=== PATIENT | female | born 1940 | race Caucasian/White ===

== ENCOUNTER → 2017-05-20 | Outpatient (CLI) | payer OTHER ==
[~2017-05-20] MED LIST: AEC81 PO; AMLO10TA2 PO; ATEN50TA PO; ATOR10TA69 PO; BERBERINE PO; FENO134C PO; METF500T6 PO; NITR0.4T50 SL; OLME1TAB44 PO; OMEP40CA37 PO
== END | disposition home or self-care (01) ==
LOC: OIH 14:22
PROVIDERS: ATTEND Internal Medicine Cardiovascular Disease
DX: Z13.6 Encounter for screening for cardiovascular disorders (principal)
CPT/HCPCS: 75571

== ENCOUNTER 2017-09-20 09:34 | Day surgery (SDC) | payer MEDICARE ==
[2017-09-16 10:47] VITALS: BP 160/66
[2017-09-16 10:58] LABS: BASOPHILS % (AUTO) 0.9 % (0.0-5.0); EOSINOPHILS % (AUTO) 2.1 % (0.0-8.0); HEMATOCRIT 38.2 % (36-48); LYMPHOCYTES % (AUTO) 22.2 % (21.0-51.0); MEAN CORPUSCULAR HEMOGLOBIN 28.2 pg (27.0-33.0); MEAN CORPUSCULAR HGB CONC 33.6 g/dL (32.0-36.0); MEAN CORPUSCULAR VOLUME 83.8 fL (79-99); MONOCYTES % (AUTO) 9.4 % (3.0-13.0); NEUTROPHILS % (AUTO) 65.4 % (40.0-77.0); PLATELET COUNT (AUTO) 370 K/uL (130-400); RED BLOOD CELL COUNT(AUTO) 4.55 MIL/uL (4.00-5.50); RED CELL DISTRIBUTION WIDTH 13.8 % (11.0-15.5); WHITE BLOOD COUNT (AUTO) 8.4 K/uL (4.8-10.8)
[2017-09-16 11:05] LABS: APPEARANCE,URINE Clear (CLEAR); BILIRUBIN,URINE Negative (NEGATIVE); COLOR,URINE Yellow (YELLOW); GLUCOSE, URINE (UA) Negative (NEGATIVE); KETONES,URINE Negative (NEGATIVE); LEUKOCYTE ESTERASE ,URINE Negative (NEGATIVE); NITRATE,URINE Negative (NEGATIVE); OCCULT BLOOD,URINE Negative (NEGATIVE); PROTEIN,URINE Negative (NEGATIVE); UROBILINOGEN,URINE 0.2 mg/dL (0.2-1.0)
[2017-09-16 11:06] LABS: POTASSIUM 4.1 mmol/L (3.5-5.1)
[2017-09-16 11:33] LABS: INR 0.96 (0.85-1.15); PARTIAL THROMBOPLASTIN TIME 25.3 SEC (26.3-35.5); PROTHROMBIN TIME 10.1 SEC (9.6-11.6)
[2017-09-20] VITALS (10 sets, daily range): BP systolic 138–164; BP diastolic 50–68
[~2017-09-20] VITALS: Ht 160 cm; Wt 73.9 kg
[~2017-09-20 09:34] MED LIST changes: +ACETAMINOPHEN 325 MG TAB PO PRN; -AEC81 PO; +SODIUM CHLORIDE 0.9% 500ML 500 ML IV SCH
[2017-09-20] MEDS ORDERED: SODIUM CHLORIDE 0.9% 1000ML 1,000 ML IV ONE (11:00)
[2017-09-20] MEDS ORDERED: NITROGLYCERIN 5 MG/ML 10 ML VIAL IV ONE (11:41)
[2017-09-20] MEDS ORDERED: SODIUM BICARB 50MEQ 50ML VIAL ONE (11:41)
[2017-09-20] MEDS ORDERED: HEPARIN SODIUM 1000UNIT/ML 10ML VIAL ONE (11:41)
[2017-09-20] MEDS ORDERED: ISOVUE-370 50ML VIAL IV ONE (11:41)
[2017-09-20] MEDS ORDERED: IOPAMIDOL-370 100 ML VIAL IV ONE (11:41)
[2017-09-20] MEDS ORDERED: LIDOCAINE HCL 2% 20ML ONE (11:41)
[2017-09-20] MEDS ORDERED: SODIUM CHLORIDE 0.9% 1000ML 1,000 ML IV SCH (12:23)
[2017-09-20] MEDS ORDERED: AEC81 PO (12:25)
[2017-09-20] MEDS ORDERED: ACETAMINOPHEN 325 MG TAB PO PRN (12:30)
== END 2017-09-20 16:50 | disposition home or self-care (01) ==
LOC: DAH 09:34
PROVIDERS: ATTEND Internal Medicine Cardiovascular Disease
DX: I25.118 Atherosclerotic heart disease of native coronary artery with other forms of angina pectoris (principal); E78.5 Hyperlipidemia, unspecified; I34.0 Nonrheumatic mitral (valve) insufficiency; Z68.29 Body mass index [BMI] 29.0-29.9, adult; K21.9 Gastro-esophageal reflux disease without esophagitis; Z82.49 Family history of ischemic heart disease and other diseases of the circulatory system; I11.0 Hypertensive heart disease with heart failure; I50.9 Heart failure, unspecified; E11.9 Type 2 diabetes mellitus without complications; Z79.84 Long term (current) use of oral hypoglycemic drugs; Z79.4 Long term (current) use of insulin; Z79.899 Other long term (current) drug therapy; Z88.8 Allergy status to other drugs, medicaments and biological substances
CPT/HCPCS: 36415; 71045; 80048; 81003; 82948 ×2; 85025; 85610; 85730; 93005; 93458; C1760; C1894; J1644; J3490 ×3; J7030; Q9967 ×2

== ENCOUNTER → 2018-07-12 | Outpatient (CLI) | payer MEDICARE ==
[~2018-07-12] MED LIST changes: -ACETAMINOPHEN 325 MG TAB PO PRN; +AEC81 PO; -AMLO10TA2 PO; +AMLO10TA7 PO; +METF-444 PO; -METF500T6 PO; -SODIUM CHLORIDE 0.9% 500ML 500 ML IV SCH
== END | disposition home or self-care (01) ==
LOC: SHCH 10:06
PROVIDERS: ATTEND Internal Medicine Cardiovascular Disease
DX: I65.23 Occlusion and stenosis of bilateral carotid arteries (principal)
CPT/HCPCS: 93880

== ENCOUNTER → 2018-07-13 | Outpatient (CLI) | payer MEDICARE | END | disposition home or self-care (01) | LOC: SHCH 10:45 | PROVIDERS: ATTEND Internal Medicine Cardiovascular Disease | DX: I34.0 Nonrheumatic mitral (valve) insufficiency (principal); I51.7 Cardiomegaly; I25.10 Atherosclerotic heart disease of native coronary artery without angina pectoris | CPT/HCPCS: 93306 ==

== ENCOUNTER → 2018-09-26 | Outpatient (CLI) | payer MEDICARE ==
[~2018-09-26] VITALS: Ht 157.5 cm; Wt 74.8 kg
[~2018-09-26] MED LIST changes: +AMLO5TAB9 PO; +COQ10 PO; +INSU100V12 SQ
[2018-09-26 09:38] VITALS: BP 180/58
[2018-09-26 09:52] LABS: BASOPHILS % (AUTO) 1.1 % (0.0-5.0); EOSINOPHILS % (AUTO) 2.1 % (0.0-8.0); HEMATOCRIT 38.3 % (36-48); LYMPHOCYTES % (AUTO) 27.2 % (21.0-51.0); MEAN CORPUSCULAR HEMOGLOBIN 28.1 pg (27.0-33.0); MEAN CORPUSCULAR VOLUME 85.3 fL (79-99); MONOCYTES % (AUTO) 9.9 % (3.0-13.0); NEUTROPHILS % (AUTO) 59.7 % (40.0-77.0); PLATELET COUNT (AUTO) 337 K/uL (130-400); RED BLOOD CELL COUNT(AUTO) 4.49 MIL/uL (4.00-5.50); RED CELL DISTRIBUTION WIDTH 13.6 % (11.0-15.5); WHITE BLOOD COUNT (AUTO) 6.1 K/uL (4.8-10.8)
[2018-09-26 10:03] LABS: CREATININE 1.1 mg/dL (0.5-1.5); POTASSIUM 3.7 mmol/L (3.5-5.1)
[2018-09-26 10:08] LABS: INR 1.01 (0.85-1.15); PARTIAL THROMBOPLASTIN TIME 26.8 SEC (26.3-35.5); PROTHROMBIN TIME 10.6 SEC (9.6-11.6)
--- NOTE | 2018-09-26 10:15 | NUR ---
DRY COUGH X 3 WEEKS SPOKE TO ABY AT DR. TORRES'S OFFICE OF PATIENT HAVING COUGH X 3 WEEKS AND IS TREATING IT W/OTC ROQUE. ABY IS TO TALK TO DR. TORRES AND CALL ME BACK.
--- NOTE | 2018-09-26 10:28 | NUR ---
PATIENT'S COUGH ABY CALLED BACK AND DR. TORRES CANCELLED PROCEDURE FOR 09/28/18 AND WILL RESCHEDULE. PATIENT IS TO SEE HER PRIMARY CARE PHYSICIAN FOR TREATMENT OF HER COUGH.
--- NOTE | 2018-09-26 10:51 | NUR ---
RESCHEDULE ABLATION SPOKE TO PATIENT OF RESCHEDULING PROCEDURE AT A LATER DATE. ADVISED PATIENT DR. TORRES WANTS HER TO SEE HER PCP FOR TREATMENT OF HER COUGH. ADVISED PATIENT TO CALL DR. TORRES ON CONTINUATION OF HER MEDICATION. SAID SHE WOULD. VERBALIZED UNDERSTANDING.
== END ==
LOC: EDSTATUS 09:00 → DAH 10:00
PROVIDERS: ATTEND Internal Medicine Cardiovascular Disease
DX: I47.1 Supraventricular tachycardia (principal); Z53.9 Procedure and treatment not carried out, unspecified reason; I10 Essential (primary) hypertension; E78.5 Hyperlipidemia, unspecified; E11.9 Type 2 diabetes mellitus without complications; K21.9 Gastro-esophageal reflux disease without esophagitis; I42.2 Other hypertrophic cardiomyopathy; Z86.79 Personal history of other diseases of the circulatory system; Z98.890 Other specified postprocedural states; Z88.2 Allergy status to sulfonamides; Z88.5 Allergy status to narcotic agent; Z79.4 Long term (current) use of insulin; Z79.82 Long term (current) use of aspirin; Z79.899 Other long term (current) drug therapy
CPT/HCPCS: 36415; 80048; 85025; 85610; 85730

== ENCOUNTER → 2018-11-14 | Outpatient (CLI) | payer MEDICARE ==
[~2018-11-14] VITALS: Ht 157.5 cm; Wt 74.5 kg
[~2018-11-14] MED LIST changes: -AMLO10TA7 PO
[2018-11-14 09:05] LABS: BASOPHILS % (AUTO) 0.8 % (0.0-5.0); EOSINOPHILS % (AUTO) 2.2 % (0.0-8.0); HEMATOCRIT 39.9 % (36-48); LYMPHOCYTES % (AUTO) 19.6 % (21.0-51.0); MEAN CORPUSCULAR HEMOGLOBIN 27.5 pg (27.0-33.0); MEAN CORPUSCULAR HGB CONC 32.4 g/dL (32.0-36.0); MEAN CORPUSCULAR VOLUME 84.7 fL (79-99); MONOCYTES % (AUTO) 9.4 % (3.0-13.0); PLATELET COUNT (AUTO) 340 K/uL (130-400); RED BLOOD CELL COUNT(AUTO) 4.71 MIL/uL (4.00-5.50); WHITE BLOOD COUNT (AUTO) 8.5 K/uL (4.8-10.8)
[2018-11-14 09:12] VITALS: BP 176/82
[2018-11-14 09:12] LABS: CREATININE 1.1 mg/dL (0.5-1.5); POTASSIUM 4.3 mmol/L (3.5-5.1)
[2018-11-14 09:16] LABS: INR 1.02 (0.85-1.15); PARTIAL THROMBOPLASTIN TIME 26.8 SEC (26.3-35.5); PROTHROMBIN TIME 10.7 SEC (9.6-11.6)
--- NOTE | 2018-11-14 09:42 | NUR ---
medication informed gabrielle ruiz at dr oviedo's office of pt not stopping atenolo three days prior. as per dr. oviedo, pt will be cancelled and rescheduled for another date.
== END ==
LOC: DAH 10:00 → EDSTATUS 11-16 08:00
PROVIDERS: ATTEND Internal Medicine Cardiovascular Disease
DX: Z01.818 Encounter for other preprocedural examination (principal); I47.1 Supraventricular tachycardia; Z79.84 Long term (current) use of oral hypoglycemic drugs; Z79.899 Other long term (current) drug therapy; Z79.4 Long term (current) use of insulin; Z79.01 Long term (current) use of anticoagulants; Z87.891 Personal history of nicotine dependence; Z88.5 Allergy status to narcotic agent; Z88.1 Allergy status to other antibiotic agents; Z88.8 Allergy status to other drugs, medicaments and biological substances; Z82.49 Family history of ischemic heart disease and other diseases of the circulatory system
CPT/HCPCS: 36415; 80048; 85025; 85610; 85730

== ENCOUNTER 2018-12-08 08:35 | Observation (INO) | payer MEDICARE ==
[2018-12-06 13:33] VITALS: BP 174/84
[2018-12-06 13:50] LABS: BASOPHILS % (AUTO) 0.8 % (0.0-5.0); EOSINOPHILS % (AUTO) 1.5 % (0.0-8.0); HEMATOCRIT 39.8 % (36-48); LYMPHOCYTES % (AUTO) 21.8 % (21.0-51.0); MEAN CORPUSCULAR HGB CONC 32.5 g/dL (32.0-36.0); MEAN CORPUSCULAR VOLUME 86.2 fL (79-99); MONOCYTES % (AUTO) 8.1 % (3.0-13.0); NEUTROPHILS % (AUTO) 67.8 % (40.0-77.0); PLATELET COUNT (AUTO) 332 K/uL (130-400); RED BLOOD CELL COUNT(AUTO) 4.61 MIL/uL (4.00-5.50); RED CELL DISTRIBUTION WIDTH 14.6 % (11.0-15.5)
[2018-12-06 14:08] LABS: PARTIAL THROMBOPLASTIN TIME 27.8 SEC (26.3-35.5); PROTHROMBIN TIME 10.5 SEC (9.6-11.6)
[2018-12-08] VITALS (9 sets, daily range): BP systolic 134–154; BP diastolic 52–72
[~2018-12-08] VITALS: Ht 157.5 cm; Wt 72.8 kg
[~2018-12-08 08:35] MED LIST changes: -AEC81 PO; +CETI10TA57 PO; +FISH1CAP27 PO; -NITR0.4T50 SL; -OMEP40CA37 PO
[2018-12-08] MEDS: SODIUM CHLORIDE 0.9% 1000ML 1,000 ML IV SCH ×2 (09:39→16:30)
[2018-12-08] MEDS ORDERED: LIDOCAINE HCL 2% 20ML ONE ×2 (10:13→10:36)
[2018-12-08] MEDS ORDERED: MEPERIDINE-PF 25 MG/ML SYG ONE ×3 (11:16→12:05)
[2018-12-08] MEDS ORDERED: MIDAZOLAM HCL 1 MG/ML 2ML VIAL ONE ×2 (11:16→11:39)
[2018-12-08] MEDS ORDERED: ISOPROTERENOL HCL 0.2 MG/ML AMP/VIAL/BAG ONE (12:29)
--- NOTE | 2018-12-08 13:00 | NUR ---
TSF PT TSF TO RM [id number]
--- NOTE | 2018-12-08 14:00 | NUR ---
RECEIVED FROM PARAPROFESSIONAL AIDE AA&OX3. NO DISTRESS NOTED. UNLABORED RESPIRATIONS. BILATERAL FEMORALS WITH DRESSINGS DRY & INTACT. PALPABLE PEDAL PULSES. INSTRUCTED ON BEDREST X3 HRS WITH MOVEMENT RESTRICTIONS TO BLE'S TO PREVENT BLEEDING/HEMATOMA. VERBALIZED UNDERSTANDING. ASSISTED ONTO BEDPAN. VOIDED 200ML YELLOW/CLEAR URINE. SETTLED IN BED. SUPINE. BILATERAL FEMORALS WITH DRESSINGS DRY & INTACT NO HEMATOMA NOR BLEEDING. CALL LIGHT IN HAND. INSTRUCTED TO CALL FOR ASSISTANCE. NO FAMILY PRESENT. STATED FAMILY IS IN MAIN LOBBY. CALLED AUTO WASHER, BUT NOBODY RESPONDED TO FAMILY PAGE.
--- NOTE | 2018-12-08 19:35 | NUR ---
ASSESSMENT PT AAOX4. RESTING QUIETLY IN BED WATCHING TV. BILATERALLY GROIN DRSG C/D/I, SOFT, NO HEMATOMA NO BRUISING. (+) PPP. PT UP AND AMBULATING IN ROOM. PT ORIENTED TO CALL NICOLAS LUNDBERG WITHIN REACH. WHITE BOARD UP-DATED. ASSESSMENT COMPLETED, SEE FLOW SHEET
[2018-12-08] MEDS ORDERED: LEVEMIR 50 UNIT SQ SCH (21:00)
[2018-12-08] MEDS: ATENOLOL 50 MG TABLET PO SCH (21:00)
[2018-12-08] MEDS: METFORMIN HCL 500 MG TABLET PO SCH (21:00)
--- NOTE | 2018-12-08 21:19 | NUR ---
DR RADHA GARCIA CALLED RE: STATUS UP-DATED. NO NEW ORDERS RECEIVED.
[2018-12-09 00:17] VITALS: BP 148/67
[2018-12-09 03:12] VITALS: BP 142/56
[2018-12-09 07:15] VITALS: BP 165/67
[2018-12-09] MEDS ORDERED: AMLODIPINE BESYLATE 5 MG TAB PO SCH ×2 (09:00)
[2018-12-09] MEDS ORDERED: HYDROCHLOROTHIAZIDE PO SCH (09:00)
[2018-12-09] MEDS ORDERED: OLMESARTAN PO SCH (09:00)
[2018-12-09] MEDS ORDERED: FISH OIL 1000 MG/CAP PO SCH (09:00)
[2018-12-09] MEDS ORDERED: [UNRECOGNIZED DRUG - OTHER] PO SCH (09:00)
[2018-12-09] MEDS ORDERED: CETIRIZINE HCL 5 MG TABLET PO SCH (09:00)
[2018-12-09] MEDS ORDERED: ATORVASTATIN CALCIUM 10 MG TABLET PO SCH (09:00)
[2018-12-09] MEDS: METFORMIN HCL 500 MG TABLET PO SCH (09:02)
[2018-12-09] MEDS: ATENOLOL 50 MG TABLET PO SCH (09:02)
--- NOTE | 2018-12-09 10:20 | NUR ---
PT IN NO DISTRESS- GROIN DRESSINGS REMOVED AND THERE IS NO SIGNS OF HEMATOMA'S OR BLEEDING. UP AD VALERIE. PT TOOK HER OWN HOME MEDS- SHE AND I REVIEWED ALL MEDS BEFORE SHE TOOK THEM.
[2018-12-09 10:30] VITALS: BP 140/56
--- NOTE | 2018-12-09 10:39 | NUR ---
PT HAS BEEN CLEARED FOR DISCHARGE BY DR MYESHA TIJERINA AND I HAVE NOTIFIED DR MONTGOMERY FOR DISCHARGE DISPOSITION. SHE WILL BE COMING TO SEE PATIENT THIS AM.
--- NOTE | 2018-12-09 13:48 | NUR ---
PT DISCHARGED HOME- PRINTED AND VERBAL DISCHARGE INSTRUCTIONS GIVEN . VERBALIZES UNDERSTANDING . NO ACUTE DISTRESSNOTED
== END 2018-12-09 13:45 | disposition home or self-care (01) ==
LOC: DAH 08:35 → 2DH 08:36 → DAH 08:36
PROVIDERS: ADMIT Internal Medicine; ATTEND Internal Medicine
DX: I47.1 Supraventricular tachycardia (principal); E11.65 Type 2 diabetes mellitus with hyperglycemia; E78.5 Hyperlipidemia, unspecified; I10 Essential (primary) hypertension; I42.9 Cardiomyopathy, unspecified; K21.9 Gastro-esophageal reflux disease without esophagitis; K27.9 Peptic ulcer, site unspecified, unspecified as acute or chronic, without hemorrhage or perforation; Z85.09 Personal history of malignant neoplasm of other digestive organs; Z85.51 Personal history of malignant neoplasm of bladder; Z86.79 Personal history of other diseases of the circulatory system; Z90.49 Acquired absence of other specified parts of digestive tract; Z79.899 Other long term (current) drug therapy; Z88.5 Allergy status to narcotic agent
CPT/HCPCS: 36415; 80048; 82948 ×4; 85025; 85610; 85730; 93005; 93613; 93621; 93623; 93653; A4606; A4649; C1730 ×4; C1732; C1894 ×5; G0378 ×24; J1644; J2175 ×3; J2250 ×2; J3490 ×2; J7030; 99156; 99157

== ENCOUNTER 2019-08-06 08:30 | Day surgery (SDC) | payer MEDICARE ==
[2019-08-02 14:55] VITALS: BP 197/87
[2019-08-02 15:07] LABS: BASOPHILS % (AUTO) 0.6 % (0.0-5.0); EOSINOPHILS % (AUTO) 3.2 % (0.0-8.0); HEMATOCRIT 37.6 % (36-48); LYMPHOCYTES % (AUTO) 21.3 % (21.0-51.0); MEAN CORPUSCULAR HEMOGLOBIN 27.9 pg (27.0-33.0); MEAN CORPUSCULAR HGB CONC 32.2 g/dL (32.0-36.0); MEAN CORPUSCULAR VOLUME 86.6 fL (79-99); MONOCYTES % (AUTO) 8.7 % (3.0-13.0); NEUTROPHILS % (AUTO) 65.9 % (40.0-77.0); PLATELET COUNT (AUTO) 362 K/uL (130-400); RED BLOOD CELL COUNT(AUTO) 4.34 MIL/uL (4.00-5.50); WHITE BLOOD COUNT (AUTO) 9.8 K/uL (4.8-10.8)
[2019-08-02 15:22] LABS: CREATININE 1.1 mg/dL (0.5-1.5); POTASSIUM 3.7 mmol/L (3.5-5.1)
--- NOTE | 2019-08-02 15:49 | NUR ---
PER DR. WANDA CAMPA.
[2019-08-06] VITALS (17 sets, daily range): BP systolic 142–171; BP diastolic 56–74
[~2019-08-06] VITALS: Ht 157.5 cm; Wt 72.6 kg
[~2019-08-06 08:30] MED LIST changes: -AMLO5TAB9 PO; +CEFTRIAXONE SODIUM 1 GM IVP SCH; -FENO134C PO; +FURO20TA4 PO; -OLME1TAB44 PO; +OLME1TAB86 PO; +TUMERIC PO
[2019-08-06] MEDS ORDERED: SODIUM CHLORIDE 0.9% 1000ML 1,000 ML IV ONE (09:54)
[2019-08-06] MEDS ORDERED: IOHEXOL-350 50ML VIAL IV ONE (12:28)
[2019-08-06] MEDS ORDERED: PROPOFOL 10 MG/ML 20ML VIAL IV ONE (12:53)
[2019-08-06] MEDS ORDERED: LIDOCAINE PF 2% 5ML ABBOJECT ONE (12:53)
[2019-08-06] MEDS ORDERED: MIDAZOLAM HCL 1 MG/ML 2ML VIAL ONE (12:53)
[2019-08-06] MEDS ORDERED: FENTANYL CITRATE PF 50 MCG/1 ML 2ML VIAL ONE (12:54)
[2019-08-06] MEDS ORDERED: EPHEDRINE SULFATE 50 MG/ML AMPULE ONE (13:20)
[2019-08-06] MEDS ORDERED: DEXAMETHASONE SOD PHOSPHATE 10MG/ML 1ML VIAL ONE (13:20)
[2019-08-06] MEDS ORDERED: ONDANSETRON HCL 4 MG/2 ML VIAL ONE (13:20)
--- NOTE | 2019-08-06 14:50 | NUR ---
LOPEZ CATHETER BAG CHANGED OUT/SWITCHED TO LEG BAG. FAMILY INSTRUCTED ON HOW TO CHANGE BAG TO LOPEZ BAG FROM LEG BAG AND LOPEZ CARE INSTRUCTIONS PROVIDED TO PATIENT/FAMILY.
[2019-08-06] MEDS ORDERED: PHENAZOPYRIDINE HCL 200 MG TABLET ONE (15:01)
--- NOTE | 2019-08-06 15:10 | NUR ---
DISCHARGE INSTRUCTIONS PROVIDED TO PATIENT AND PATIENT'S FAMILY, FOLLOW UP APPOINTMENTS PROVIDED AND PRESCRIPTIONS PROVIDED WELL.
--- NOTE | 2019-08-06 15:30 | NUR ---
PATIENT DISCHARGED FROM FACILITY VIA WHEELCHAIR AND PATIENT ASSISTED INTO PRIVATE VEHICLE DRIVEN BY FAMILY.
== END 2019-08-06 15:30 | disposition home or self-care (01) ==
LOC: DAH 08:30
PROVIDERS: ATTEND Urology
DX: C67.9 Malignant neoplasm of bladder, unspecified (principal); R31.9 Hematuria, unspecified; E11.9 Type 2 diabetes mellitus without complications; I10 Essential (primary) hypertension; K21.9 Gastro-esophageal reflux disease without esophagitis; M19.90 Unspecified osteoarthritis, unspecified site; Z88.2 Allergy status to sulfonamides; Z88.8 Allergy status to other drugs, medicaments and biological substances; Z79.899 Other long term (current) drug therapy; Z79.84 Long term (current) use of oral hypoglycemic drugs; Z88.5 Allergy status to narcotic agent; Z98.890 Other specified postprocedural states; Z79.4 Long term (current) use of insulin; Z87.891 Personal history of nicotine dependence; Z82.49 Family history of ischemic heart disease and other diseases of the circulatory system
CPT/HCPCS: 36415; 52204; 74420; 80048; 82948 ×2; 85025; 88305; 88341; 88342; 93005; A4215; A4221; A4222; A4223; A4344; A4600; A4657; A4663; A5113; A6260; C1758; C1769; J0696; J1100; J2001; J2250; J2405; J2704; J3010; J3490; J7030; J7120; Q9967

== ENCOUNTER 2021-04-03 01:53 | Observation (INO) | payer MEDICARE ==
[~2021-04-03] VITALS: Ht 157.5 cm; Wt 71.8 kg
[~2021-04-03 01:53] MED LIST changes: +ASCO500T10 PO; +ATEN25TA PO; -ATEN50TA PO; -CEFTRIAXONE SODIUM 1 GM IVP SCH; +FERR325T22 PO; -FISH1CAP27 PO; +FOLI1 PO; +OLME-11 PO; -OLME1TAB86 PO; +PANT40TA55 PO
[2021-04-03 02:30] LABS: BASOPHILS % (AUTO) 0.7 % (0.0-5.0); EOSINOPHILS % (AUTO) 2.7 % (0.0-8.0); HEMATOCRIT 35.5 % (36-48); LYMPHOCYTES % (AUTO) 20.7 % (21.0-51.0); MEAN CORPUSCULAR HEMOGLOBIN 27.4 pg (27.0-33.0); MEAN CORPUSCULAR HGB CONC 32.4 g/dL (32.0-36.0); MEAN CORPUSCULAR VOLUME 84.5 fL (79-99); MONOCYTES % (AUTO) 10.3 % (3.0-13.0); NEUTROPHILS % (AUTO) 65.3 % (40.0-77.0); PLATELET COUNT (AUTO) 300 K/uL (130-400); RED CELL DISTRIBUTION WIDTH 13.3 % (11.0-15.5); WHITE BLOOD COUNT (AUTO) 9.6 K/uL (4.8-10.8)
[2021-04-03 02:39] LABS: CREATININE 1.2 mg/dL (0.5-1.5); POTASSIUM 3.4 mmol/L (3.5-5.1)
[2021-04-03 02:44] LABS: ALBUMIN 3.4 g/dL (3.5-5.0); BILIRUBIN,TOTAL 0.3 mg/dL (0.2-1.0); TOTAL PROTEIN, SERUM 7.1 g/dL (6.0-8.3)
[2021-04-03] MEDS ORDERED: IOHEXOL 350 MG/ML 100ML INFUS..BTL IV ONE (02:53)
[2021-04-03] MEDS ORDERED: 0.9%NACL 1000ML 500 ML IV ONE (03:00)
[2021-04-03] MEDS ORDERED: LACTATED RINGERS 1000ML 1,000 ML IV SCH (03:30)
[2021-04-03] MEDS ORDERED: HYDRALAZINE 20MG/ML VIAL IV PRN (03:30)
[2021-04-03 03:32] LABS: HEMOGLOBIN A1C 8.8 % (4.0-6.0)
[2021-04-03] MEDS ORDERED: 0.9% NACL 500ML IV.SOLN 500 ML IV ONE (03:34)
[2021-04-03] MEDS: ASPIRIN 81MG CHEW TAB ONE ×2 (03:35→03:37)
[2021-04-03] MEDS ORDERED: POTASSIUM CHLORIDE 10MEQ/100ML 100 ML IV PRN ×2 (04:30→12:30)
[2021-04-03] MEDS ORDERED: LIDOCAINE HCL-MPF 1% 2ML VIAL IV PRN ×2 (04:30→12:30)
[2021-04-03 04:33] LABS: APPEARANCE,URINE Clear (CLEAR); BILIRUBIN,URINE Negative (NEGATIVE); COLOR,URINE Dark Yellow (YELLOW); GLUCOSE, URINE (UA) Negative (NEGATIVE); KETONES,URINE Negative (NEGATIVE); LEUKOCYTE ESTERASE ,URINE Trace (NEGATIVE); NITRATE,URINE Negative (NEGATIVE); OCCULT BLOOD,URINE Negative (NEGATIVE); PH,URINE 6.5 (5.0-8.0); PROTEIN,URINE Negative (NEGATIVE)
[2021-04-03 04:40] LABS: BACTERIA,URINE None Seen /HPF (None Seen); RBC,URINE 0-1 /HPF (0-1); WBC,URINE 0-1 /HPF (0-1)
[2021-04-03 04:41] LABS: SQUAMOUS EPITHELIAL CELL,UR Rare /HPF (0-2)
[2021-04-03 05:15] VITALS: BP 176/73
[2021-04-03 05:48] LABS: CHOLESTEROL 109 mg/dL (<200); HDL CHOLESTEROL 43 mg/dL (35-85); LDL DIRECT 50 mg/dL (0-99); TRIGLYCERIDES 118 mg/dL (30-200)
[2021-04-03 07:44] VITALS: BP 171/62
[2021-04-03] MEDS ORDERED: ASPIRIN 81MG CHEW TAB PO SCH (09:00)
[2021-04-03] MEDS ORDERED: FAMOTIDINE 20MG VIAL IV SCH (09:00)
[2021-04-03] MEDS: ASPIRIN 81 MG EC TAB PO SCH (09:00)
[2021-04-03 10:46] VITALS: BP 160/69
[2021-04-03] MEDS: INSULIN HUMULIN R 100 UNIT/ML 3ML SQ SCH ×3 (12:00→21:12)
[2021-04-03] MEDS ORDERED: POTASSIUM CHLORIDE 10% ELIXIR 20 MEQ/15 ML UDCUP PO PRN (12:30)
[2021-04-03] MEDS ORDERED: KCL 20 MEQ ERTAB PO PRN (12:30)
[2021-04-03] MEDS ORDERED: ASPIRIN 81 MG EC TAB PO SCH (17:00)
[2021-04-03 17:01] VITALS: BP 154/73
[2021-04-03 19:26] VITALS: BP 157/67
[2021-04-03] MEDS ORDERED: GLUCAGON 1MG KIT 1 MG ML IM PRN (19:30)
[2021-04-03] MEDS ORDERED: DEXTROSE 50%-WATER 50 ML DISP.SYRIN IV PRN (19:30)
[2021-04-03] MEDS ORDERED: INSULIN GLARGINE 100 UNITS/ML 10 ML VIAL SQ SCH (21:00)
[2021-04-03] MEDS ORDERED: ATORVASTATIN 40 MG TABLET PO SCH (21:00)
[2021-04-03] MEDS: ATENOLOL 25 MG TABLET PO SCH (21:10)
[2021-04-03] MEDS: PANTOPRAZOLE 40 MG/VIAL IVP SCH (21:10)
[2021-04-03 23:37] VITALS: BP 158/66
[2021-04-04 03:24] VITALS: BP 154/79
[2021-04-04 03:59] LABS: BASOPHILS % (AUTO) 0.8 % (0.0-5.0); EOSINOPHILS % (AUTO) 3.5 % (0.0-8.0); LYMPHOCYTES % (AUTO) 23.3 % (21.0-51.0); MEAN CORPUSCULAR HEMOGLOBIN 27.3 pg (27.0-33.0); MEAN CORPUSCULAR HGB CONC 31.8 g/dL (32.0-36.0); MEAN CORPUSCULAR VOLUME 85.9 fL (79-99); MONOCYTES % (AUTO) 9.1 % (3.0-13.0); NEUTROPHILS % (AUTO) 63.1 % (40.0-77.0); PLATELET COUNT (AUTO) 279 K/uL (130-400); RED BLOOD CELL COUNT(AUTO) 3.96 MIL/uL (4.00-5.50); RED CELL DISTRIBUTION WIDTH 13.4 % (11.0-15.5); WHITE BLOOD COUNT (AUTO) 9.2 K/uL (4.8-10.8)
[2021-04-04 04:28] LABS: CREATININE 1.1 mg/dL (0.5-1.5); MAGNESIUM 1.4 mg/dL (1.80-2.40); POTASSIUM 3.6 mmol/L (3.5-5.1); THYROID STIMULATING HORMONE 3.25 uIU/mL (0.36-3.74)
[2021-04-04] MEDS: INSULIN HUMULIN R 100 UNIT/ML 3ML SQ SCH ×2 (05:52→12:00)
[2021-04-04] MEDS ORDERED: MAGNESIUM 2GM PREMIX 50ML 50 ML IV PRN (06:00)
[2021-04-04 08:09] VITALS: BP 152/59
[2021-04-04] MEDS ORDERED: FERROUS SULFATE 325 MG TABLET.DR PO SCH (09:00)
[2021-04-04] MEDS ORDERED: FUROSEMIDE 20 MG TABLET PO SCH (09:00)
[2021-04-04] MEDS ORDERED: FOLIC ACID 1 MG TABLET PO SCH (09:00)
[2021-04-04] MEDS: ASPIRIN 81 MG EC TAB PO SCH (10:36)
[2021-04-04] MEDS: PANTOPRAZOLE 40 MG/VIAL IVP SCH (10:37)
[2021-04-04] MEDS: ATENOLOL 25 MG TABLET PO SCH (10:37)
[2021-04-04 10:52] VITALS: BP 157/74
[2021-04-04] MEDS ORDERED: ASPI-1005 PO (10:59)
== END 2021-04-04 13:50 | disposition home or self-care (01) ==
LOC: EDH 01:53 → INTOOBSV 03:05 → EDHIP 03:05 → 4AH 03:55
PROVIDERS: ADMIT Internal Medicine; ATTEND Internal Medicine
DX: I63.9 Cerebral infarction, unspecified (principal); E87.6 Hypokalemia; I48.0 Paroxysmal atrial fibrillation; I10 Essential (primary) hypertension; E11.9 Type 2 diabetes mellitus without complications; K21.9 Gastro-esophageal reflux disease without esophagitis; M62.81 Muscle weakness (generalized); E78.5 Hyperlipidemia, unspecified; K57.90 Diverticulosis of intestine, part unspecified, without perforation or abscess without bleeding; I25.10 Atherosclerotic heart disease of native coronary artery without angina pectoris; E03.9 Hypothyroidism, unspecified; R29.703 NIHSS score 3; R47.81 Slurred speech; R29.818 Other symptoms and signs involving the nervous system; Z87.19 Personal history of other diseases of the digestive system; Z79.899 Other long term (current) drug therapy; Z98.890 Other specified postprocedural states; Z79.4 Long term (current) use of insulin; Z79.84 Long term (current) use of oral hypoglycemic drugs; Z79.82 Long term (current) use of aspirin; Z85.51 Personal history of malignant neoplasm of bladder; Z85.828 Personal history of other malignant neoplasm of skin; Z87.11 Personal history of peptic ulcer disease
CPT/HCPCS: 36415 ×2; 70450; 70496; 70498; 70551; 71045; 72148; 80048; 80053; 80061; 81001; 82607; 82948 ×7; 83036; 83735; 84145; 84439; 84443; 84484; 85025 ×2; 92522; 92610; 93005; 96365; 96366; 96375; 96376; 97116; 99285; C9113 ×2; G0378; G8978; G8979; G8980; G8981; G8982; G8983; J3475; J3490; J7040; J7120; Q9967

== ENCOUNTER 2021-07-31 06:38 | Day surgery (SDC) | payer MEDICARE ==
[2021-07-29 08:32] VITALS: BP_SYST 160; BP_SYST 172; BP_SYST 220; BP_DIAS 100; BP_DIAS 103; BP_DIAS 90
[2021-07-29 14:56] LABS: BASOPHILS % (AUTO) 0.7 % (0.0-5.0); EOSINOPHILS % (AUTO) 1.8 % (0.0-8.0); HEMATOCRIT 38.3 % (36-48); LYMPHOCYTES % (AUTO) 22.3 % (21.0-51.0); MEAN CORPUSCULAR HEMOGLOBIN 28.1 pg (27.0-33.0); MEAN CORPUSCULAR HGB CONC 31.9 g/dL (32.0-36.0); MEAN CORPUSCULAR VOLUME 88.2 fL (79-99); MONOCYTES % (AUTO) 7.7 % (3.0-13.0); NEUTROPHILS % (AUTO) 67.1 % (40.0-77.0); PLATELET COUNT (AUTO) 341 K/uL (130-400); RED BLOOD CELL COUNT(AUTO) 4.34 MIL/uL (4.00-5.50); RED CELL DISTRIBUTION WIDTH 12.6 % (11.0-15.5); WHITE BLOOD COUNT (AUTO) 11.6 K/uL (4.8-10.8)
[2021-07-31] VITALS (15 sets, daily range): BP systolic 129–187; BP diastolic 54–95
[~2021-07-31] VITALS: Ht 157.5 cm; Wt 71.2 kg
[~2021-07-31 06:38] MED LIST changes: +AEC81 PO; +ASCO500C18 PO; -ASCO500T10 PO; -ATEN25TA PO; +ATEN50TA PO; -BERBERINE PO; -CETI10TA57 PO; -FERR325T22 PO; -FOLI1 PO; -PANT40TA55 PO; -TUMERIC PO
[2021-07-31] MEDS ORDERED: 0.9%NACL 1000ML 1,000 ML IV ONE (07:35)
[2021-07-31] MEDS ORDERED: IOHEXOL-350 50ML VIAL IV ONE (07:53)
[2021-07-31] MEDS: CEFTRIAXONE 1G VIAL IVP ONE ×2 (07:58→09:43)
[2021-07-31] MEDS ORDERED: MITOMYCIN 40 MG SYR.W..INJ AD PRN (08:00)
[2021-07-31] MEDS ORDERED: FERR159T2 PO (08:28)
[2021-07-31] MEDS ORDERED: CETI10TA57 PO (08:28)
[2021-07-31] MEDS ORDERED: CALC-866 PO (08:28)
[2021-07-31] MEDS ORDERED: ESOM20CA31 PO (08:28)
[2021-07-31] MEDS ORDERED: TURM1TAB PO (08:28)
[2021-07-31] MEDS ORDERED: MULT-1203 PO (08:28)
[2021-07-31] MEDS ORDERED: FENTANYL CITRATE PF 50 MCG/1 ML 2ML VIAL ONE (09:36)
[2021-07-31] MEDS ORDERED: LIDOCAINE PF 100MG/5ML (2%) SYRINGE 5ML ONE (09:36)
[2021-07-31] MEDS ORDERED: PROPOFOL 10 MG/ML 20ML VIAL IV ONE (09:36)
[2021-07-31] MEDS ORDERED: GLYCOPYRROLATE 1 MG/5 ML SYRINGE ONE (09:54)
== END 2021-07-31 12:05 | disposition home or self-care (01) ==
LOC: DAH 06:38
PROVIDERS: ATTEND Urology
DX: R31.29 Other microscopic hematuria (principal); Z20.822 Contact with and (suspected) exposure to COVID-19; C67.9 Malignant neoplasm of bladder, unspecified; I10 Essential (primary) hypertension; I25.10 Atherosclerotic heart disease of native coronary artery without angina pectoris; E11.9 Type 2 diabetes mellitus without complications; K21.9 Gastro-esophageal reflux disease without esophagitis; M19.90 Unspecified osteoarthritis, unspecified site; I44.1 Atrioventricular block, second degree; I49.1 Atrial premature depolarization; I45.10 Unspecified right bundle-branch block; Z98.890 Other specified postprocedural states; Z79.84 Long term (current) use of oral hypoglycemic drugs; Z79.82 Long term (current) use of aspirin; Z79.899 Other long term (current) drug therapy; Z88.6 Allergy status to analgesic agent; Z88.8 Allergy status to other drugs, medicaments and biological substances
CPT/HCPCS: 36415; 51720; 52204; 74420; 80048; 82948 ×3; 85025; 87635; 88305; 88341; 88342; 93005 ×2; A4213; A4215; A4221; A4222; A4223; A4344; A4358; A4663; A6260; C1758; C1769; C9803; J0696; J2001; J2704; J3010; J3490; J7030; J7120; J9280; Q9967

== ENCOUNTER 2021-11-11 20:28 | Inpatient (IN) | payer MEDICARE ==
[~2021-11-11] VITALS: Ht 157.5 cm; Wt 71.0 kg
[~2021-11-11 20:28] MED LIST changes: -AEC81 PO; +CALC-866 PO; +CETI10TA57 PO; -COQ10 PO; +ESOM20CA31 PO; +FERR159T2 PO; +MULT-1203 PO; +PHARMACY COMMUNICATION MISC SCH
[2021-11-11 21:10] LABS: CREATININE 1.1 mg/dL (0.5-1.5); POTASSIUM 3.2 mmol/L (3.5-5.1)
[2021-11-11 21:15] LABS: ALBUMIN 3.3 g/dL (3.5-5.0); BILIRUBIN,TOTAL 0.4 mg/dL (0.2-1.0); TOTAL PROTEIN, SERUM 7.3 g/dL (6.0-8.3)
[2021-11-11 21:21] LABS: BASOPHILS % (AUTO) 0.3 % (0.0-5.0); HEMATOCRIT 37.8 % (36-48); LYMPHOCYTES % (AUTO) 10.9 % (21.0-51.0); MEAN CORPUSCULAR HEMOGLOBIN 27.8 pg (27.0-33.0); MEAN CORPUSCULAR HGB CONC 33.1 g/dL (32.0-36.0); MONOCYTES % (AUTO) 14.5 % (3.0-13.0); NEUTROPHILS % (AUTO) 73.9 % (40.0-77.0); PLATELET COUNT (AUTO) 253 K/uL (130-400); RED CELL DISTRIBUTION WIDTH 13.7 % (11.0-15.5); WHITE BLOOD COUNT (AUTO) 10.2 K/uL (4.8-10.8)
[2021-11-11] MEDS ORDERED: ACETAMINOPHEN 500 MG TABLET ONE (21:33)
[2021-11-11] MEDS ORDERED: CEFTRIAXONE 1G VIAL IVP ONE (22:00)
[2021-11-11] MEDS ORDERED: AZITHROMYCIN 250 MG TABLET PO ONE ×2 (22:00→23:22)
[2021-11-11] MEDS ORDERED: 0.9% NACL 500ML IV.SOLN 500 ML IV ONE (22:00)
[2021-11-11] MEDS ORDERED: ACETAMINOPHEN 500 MG TABLET PO ONE (22:00)
[2021-11-11] MEDS ORDERED: PHARMACY COMMUNICATION**REMDESIVIR MISC SCH (22:30)
[2021-11-11] MEDS ORDERED: DEXAMETHASONE 4 MG TAB PO SCH (22:30)
[2021-11-11] MEDS ORDERED: ACETAMINOPHEN 325 MG TAB PO PRN (22:30)
[2021-11-11] MEDS ORDERED: LIDOCAINE HCL-MPF 1% 2ML VIAL IV PRN (22:30)
[2021-11-11] MEDS ORDERED: ERGOCALCIFEROL (VITAMIN D2) 50,000 UNIT CAPSULE PO ONE (22:30)
[2021-11-11] MEDS ORDERED: DEXAMETHASONE SOD PHOSPHATE 4 MG/ML 1ML VIAL IVP SCH (22:30)
[2021-11-11] MEDS ORDERED: ONDANSETRON 4MG INJ IV PRN (22:30)
[2021-11-11] MEDS ORDERED: POTASSIUM CHLORIDE 20MEQ/100ML 100 ML IV PRN (22:30)
[2021-11-11] MEDS ORDERED: NITROGLYCERIN 0.4 MG SL TAB SL PRN (23:00)
[2021-11-11] MEDS ORDERED: ASPIRIN 81MG CHEW TAB PO ONE (23:00)
[2021-11-11 23:21] LABS: ABG BASE EXCESS 2.4 mmol/L (-2.0-3.0); ABG HCO3 24.4 mmol/L (21.0-28.0); ABG OXYGEN SATURATION 95.9 % (95.0-99.0); ABG PCO2 30 mmHg (32-45)
[2021-11-11] MEDS: CEFTRIAXONE 1G VIAL IVP SCH (23:29)
[2021-11-11] MEDS: POTASSIUM CHLORIDE 10% ELIXIR 20 MEQ/15 ML UDCUP PO PRN (23:30)
[2021-11-12] MEDS ORDERED: ERGOCALCIFEROL (VITAMIN D2) 50,000 UNIT CAPSULE ONE (00:07)
[2021-11-12] MEDS ORDERED: ASPIRIN 81MG CHEW TAB ONE (00:07)
[2021-11-12] MEDS: DOXYCYCLINE 100MG+NS 250ML IV SCH ×3 (00:11→22:38)
[2021-11-12] MEDS: ALBUTEROL INHALER 90MCG/INH IH SCH ×5 (00:16→22:48)
[2021-11-12 01:01] LABS: APPEARANCE,URINE CLEAR (CLEAR); BILIRUBIN,URINE NEGATIVE (NEGATIVE); COLOR,URINE YELLOW (YELLOW); GLUCOSE, URINE (UA) NEGATIVE (NEGATIVE); KETONES,URINE 15 mg/dL (NEGATIVE); LEUKOCYTE ESTERASE ,URINE NEGATIVE (NEGATIVE); NITRATE,URINE NEGATIVE (NEGATIVE); OCCULT BLOOD,URINE TRACE-INTACT (NEGATIVE); PROTEIN,URINE 100 mg/dL (NEGATIVE)
[2021-11-12 01:10] LABS: BACTERIA,URINE Rare /HPF (None Seen); WBC,URINE 0-1 /HPF (0-1)
[2021-11-12] MEDS: POTASSIUM CHLORIDE 10% ELIXIR 20 MEQ/15 ML UDCUP PO PRN (01:32)
[2021-11-12 01:40] VITALS: BP 167/75
[2021-11-12] MEDS ORDERED: ENALAPRILAT DIHYDRATE 1.25MG/ML 1ML VIAL IV SCH (02:00)
[2021-11-12] MEDS ORDERED: AMLODIPINE 5 MG TAB PO ONE (02:00)
[2021-11-12 04:00] VITALS: BP 149/59
[2021-11-12] MEDS: INSULIN HUMULIN R 100 UNIT/ML 3ML SQ SCH ×4 (06:16→20:49)
[2021-11-12 06:36] LABS: BASOPHILS % (AUTO) 0.2 % (0.0-5.0); HEMATOCRIT 41.6 % (36-48); LYMPHOCYTES % (AUTO) 7.7 % (21.0-51.0); MEAN CORPUSCULAR HEMOGLOBIN 27.8 pg (27.0-33.0); MEAN CORPUSCULAR HGB CONC 32.7 g/dL (32.0-36.0); MEAN CORPUSCULAR VOLUME 84.9 fL (79-99); MONOCYTES % (AUTO) 6.7 % (3.0-13.0); NEUTROPHILS % (AUTO) 84.9 % (40.0-77.0); PLATELET COUNT (AUTO) 242 K/uL (130-400); RED CELL DISTRIBUTION WIDTH 13.7 % (11.0-15.5)
[2021-11-12 06:48] LABS: ALBUMIN 2.9 g/dL (3.5-5.0); BILIRUBIN,TOTAL 0.3 mg/dL (0.2-1.0); CREATININE 1.1 mg/dL (0.5-1.5); POTASSIUM 4.3 mmol/L (3.5-5.1); TOTAL PROTEIN, SERUM 6.9 g/dL (6.0-8.3)
[2021-11-12 06:52] LABS: HEMOGLOBIN A1C 9.7 % (4.0-6.0)
[2021-11-12 08:00] VITALS: BP_SYST 145; BP_SYST 151; BP_DIAS 81; BP_DIAS 87
[2021-11-12] MEDS ORDERED: FAMOTIDINE 20MG VIAL IV SCH (09:00)
[2021-11-12] MEDS ORDERED: ASPIRIN 81MG CHEW TAB PO SCH (09:00)
[2021-11-12] MEDS ORDERED: ENOXAPARIN SODIUM 40 MG/0.4 ML SYRINGE SQ SCH (09:00)
[2021-11-12] MEDS: AMLODIPINE 5 MG TAB PO SCH (09:47)
[2021-11-12] MEDS: ZINC SULFATE 220 CAPSULE PO SCH (09:47)
[2021-11-12] MEDS: ASCORBIC ACID 500 MG TAB PO SCH (09:47)
[2021-11-12] MEDS: CEFTRIAXONE 1G VIAL IVP SCH ×2 (09:48→22:37)
[2021-11-12 10:01] LABS: CRP QUANTITATIVE 74.9 mg/L (0.00-9.0); MAGNESIUM 1.2 mg/dL (1.80-2.40)
[2021-11-12] MEDS: PANTOPRAZOLE 40 MG/VIAL IVP SCH (10:24)
[2021-11-12] MEDS: ATENOLOL 50 MG TABLET PO SCH ×2 (10:25→20:47)
[2021-11-12] MEDS: THIAMINE HCL 100 MG/ML 2ML VIAL IVP SCH (10:25)
[2021-11-12 12:00] VITALS: BP 145/72
[2021-11-12] MEDS ORDERED: MAGNESIUM 2GM PREMIX 50ML 50 ML IV SCH (13:00)
[2021-11-12 15:54] VITALS: BP 126/54
[2021-11-12 19:00] VITALS: BP 144/91
[2021-11-12] MEDS ORDERED: VANCOMYCIN PROTOCOL PER PHARMACY IV SCH (20:00)
[2021-11-12] MEDS: VANCOMYCIN 1G/250ML KIT 250 ML IV SCH (20:46)
[2021-11-12] MEDS: HEPARIN 5,000 UNIT VIAL SQ SCH (20:48)
[2021-11-12] MEDS: GUAIFENESIN-DM 200/20 MG 10 ML PO PRN (22:38)
[2021-11-13] VITALS (7 sets, daily range): BP systolic 134–181; BP diastolic 59–90
[2021-11-13] MEDS ORDERED: MAGNESIUM 2GM PREMIX 50ML 50 ML IV PRN
[2021-11-13] MEDS: ALBUTEROL INHALER 90MCG/INH IH SCH ×4 (05:24→23:00)
[2021-11-13 05:53] LABS: BASOPHILS % (AUTO) 0.1 % (0.0-5.0); HEMATOCRIT 39.6 % (36-48); MEAN CORPUSCULAR HEMOGLOBIN 27.6 pg (27.0-33.0); MEAN CORPUSCULAR HGB CONC 32.6 g/dL (32.0-36.0); MEAN CORPUSCULAR VOLUME 84.6 fL (79-99); MONOCYTES % (AUTO) 10.6 % (3.0-13.0); NEUTROPHILS % (AUTO) 73.8 % (40.0-77.0); PLATELET COUNT (AUTO) 272 K/uL (130-400); RED BLOOD CELL COUNT(AUTO) 4.68 MIL/uL (4.00-5.50); RED CELL DISTRIBUTION WIDTH 13.6 % (11.0-15.5); WHITE BLOOD COUNT (AUTO) 12.5 K/uL (4.8-10.8)
[2021-11-13] MEDS: INSULIN HUMULIN R 100 UNIT/ML 3ML SQ SCH ×4 (06:11→20:54)
[2021-11-13 06:27] LABS: ALBUMIN 2.8 g/dL (3.5-5.0); BILIRUBIN,TOTAL 0.3 mg/dL (0.2-1.0); CREATININE 0.9 mg/dL (0.5-1.5); POTASSIUM 3.8 mmol/L (3.5-5.1); TOTAL PROTEIN, SERUM 6.8 g/dL (6.0-8.3)
[2021-11-13] MEDS: KCL 20 MEQ ERTAB PO PRN ×2 (06:37→11:38)
[2021-11-13] MEDS: **HM** VIT D3 125MCG PO SCH (09:00)
[2021-11-13] MEDS: AMLODIPINE 5 MG TAB PO SCH (11:26)
[2021-11-13] MEDS: CETIRIZINE HCL 5 MG TABLET PO SCH (11:26)
[2021-11-13] MEDS: ZINC SULFATE 220 CAPSULE PO SCH (11:26)
[2021-11-13] MEDS: ACETAMINOPHEN 500 MG TABLET PO PRN ×2 (11:27→21:02)
[2021-11-13] MEDS: FERROUS SULFATE 325 MG TABLET.DR PO SCH (11:27)
[2021-11-13] MEDS: ATORVASTATIN 10 MG TABLET PO SCH (11:28)
[2021-11-13] MEDS: MULTIVITAMIN TABLET PO SCH (11:28)
[2021-11-13] MEDS: ATENOLOL 50 MG TABLET PO SCH (11:28)
[2021-11-13] MEDS: ASCORBIC ACID 500 MG TAB PO SCH (11:28)
[2021-11-13] MEDS: THIAMINE HCL 100 MG/ML 2ML VIAL IVP SCH (11:29)
[2021-11-13] MEDS: PANTOPRAZOLE 40 MG/VIAL IVP SCH (11:29)
[2021-11-13] MEDS: HEPARIN 5,000 UNIT VIAL SQ SCH ×2 (11:30→20:20)
[2021-11-13] MEDS: CEFTRIAXONE 1G VIAL IVP SCH ×2 (11:31→22:35)
[2021-11-13] MEDS: DOXYCYCLINE 100MG+NS 250ML IV SCH ×2 (11:31→22:35)
[2021-11-13] MEDS: GUAIFENESIN-DM 200/20 MG 10 ML PO PRN (15:36)
[2021-11-13] MEDS ORDERED: LOSARTAN 50 MG TABLET PO SCH (17:30)
[2021-11-13] MEDS: VANCOMYCIN 1G/250ML KIT 250 ML IV SCH (20:19)
[2021-11-13] MEDS ORDERED: BENZONATATE 100 MG CAPSULE PO PRN (20:30)
[2021-11-13] MEDS: INSULIN GLARGINE 100 UNITS/ML 10 ML VIAL SQ SCH (20:55)
[2021-11-13] MEDS: ATENOLOL 25 MG TABLET PO SCH (21:30)
[2021-11-13] MEDS ORDERED: ACETYLCYSTEINE 10% 100MG/ML 4ML VIAL ONE (23:07)
[2021-11-13] MEDS ORDERED: ALBUTEROL 0.083% 2.5 MG/3 ML INH IH ONE ×2 (23:07→23:30)
[2021-11-14 03:55] VITALS: BP 156/64
[2021-11-14] MEDS: ALBUTEROL INHALER 90MCG/INH IH SCH ×4 (05:00→23:01)
[2021-11-14 05:34] LABS: BASOPHILS % (AUTO) 0.3 % (0.0-5.0); EOSINOPHILS % (AUTO) 0.8 % (0.0-8.0); HEMATOCRIT 39.4 % (36-48); MEAN CORPUSCULAR HEMOGLOBIN 27.3 pg (27.0-33.0); MEAN CORPUSCULAR VOLUME 85.5 fL (79-99); MONOCYTES % (AUTO) 9.1 % (3.0-13.0); NEUTROPHILS % (AUTO) 66.2 % (40.0-77.0); PLATELET COUNT (AUTO) 260 K/uL (130-400); RED BLOOD CELL COUNT(AUTO) 4.61 MIL/uL (4.00-5.50); RED CELL DISTRIBUTION WIDTH 13.7 % (11.0-15.5); WHITE BLOOD COUNT (AUTO) 10.7 K/uL (4.8-10.8)
[2021-11-14 05:48] LABS: ALBUMIN 2.8 g/dL (3.5-5.0); BILIRUBIN,TOTAL 0.4 mg/dL (0.2-1.0); CREATININE 0.9 mg/dL (0.5-1.5); MAGNESIUM 1.6 mg/dL (1.80-2.40); POTASSIUM 4.1 mmol/L (3.5-5.1); TOTAL PROTEIN, SERUM 6.7 g/dL (6.0-8.3)
[2021-11-14] MEDS: INSULIN HUMULIN R 100 UNIT/ML 3ML SQ SCH ×4 (06:35→20:50)
[2021-11-14] MEDS ORDERED: PHARMACY COMMUNICATION MISC SCH (08:30)
[2021-11-14] MEDS ORDERED: SOLU-MEDROL 40MG VIAL IVP SCH (09:00)
[2021-11-14] MEDS: **HM** VIT D3 125MCG PO SCH (09:00)
[2021-11-14] MEDS ORDERED: ACETYLCYSTEINE 10% 100MG/ML 4ML VIAL IH SCH (09:00)
[2021-11-14 09:19] VITALS: BP 175/81
[2021-11-14] MEDS: DOXYCYCLINE 100MG+NS 250ML IV SCH (09:25)
[2021-11-14] MEDS: CEFTRIAXONE 1G VIAL IVP SCH ×2 (09:25→22:30)
[2021-11-14] MEDS: ASCORBIC ACID 500 MG TAB PO SCH (09:25)
[2021-11-14] MEDS: MULTIVITAMIN TABLET PO SCH (09:25)
[2021-11-14] MEDS: ATENOLOL 25 MG TABLET PO SCH ×2 (09:25→21:58)
[2021-11-14] MEDS: LOSARTAN/HYDROCHLOROTHIAZIDE 50-12.5MG TABLET PO SCH (09:26)
[2021-11-14] MEDS: ATORVASTATIN 10 MG TABLET PO SCH (09:26)
[2021-11-14] MEDS: FERROUS SULFATE 325 MG TABLET.DR PO SCH (09:27)
[2021-11-14] MEDS: CETIRIZINE HCL 5 MG TABLET PO SCH (09:27)
[2021-11-14] MEDS: THIAMINE HCL 100 MG/ML 2ML VIAL IVP SCH (09:28)
[2021-11-14] MEDS: ZINC SULFATE 220 CAPSULE PO SCH (09:28)
[2021-11-14] MEDS: PANTOPRAZOLE 40 MG TAB DR ONE ×2 (09:29→09:30)
[2021-11-14] MEDS: PANTOPRAZOLE 40 MG TAB DR PO SCH (09:30)
[2021-11-14] MEDS: HEPARIN 5,000 UNIT VIAL SQ SCH ×2 (09:33→21:04)
[2021-11-14] MEDS ORDERED: DOXYCYCLINE HYCLATE 100 MG TABLET PO SCH (11:00)
[2021-11-14 12:15] VITALS: BP_SYST 157; BP_SYST 160; BP_DIAS 77; BP_DIAS 95
[2021-11-14] MEDS ORDERED: IPRATROPIUM/ALBUTEROL SULFATE 3 ML SOLUTION IH PRN (15:00)
[2021-11-14 17:17] VITALS: BP 149/72
[2021-11-14 20:04] VITALS: BP 150/59
[2021-11-14] MEDS: INSULIN GLARGINE 100 UNITS/ML 10 ML VIAL SQ SCH (21:04)
[2021-11-14] MEDS: GUAIFENESIN-DM 200/20 MG 10 ML PO PRN (23:54)
[2021-11-15 00:17] VITALS: BP 156/68
[2021-11-15] MEDS: ALBUTEROL INHALER 90MCG/INH IH SCH ×2 (05:03→11:06)
[2021-11-15 05:04] VITALS: BP 160/67
[2021-11-15] MEDS: INSULIN HUMULIN R 100 UNIT/ML 3ML SQ SCH ×2 (06:28→11:09)
[2021-11-15 06:40] LABS: BASOPHILS % (AUTO) 0.7 % (0.0-5.0); EOSINOPHILS % (AUTO) 2.7 % (0.0-8.0); HEMATOCRIT 38.8 % (36-48); MEAN CORPUSCULAR HEMOGLOBIN 27.8 pg (27.0-33.0); MEAN CORPUSCULAR HGB CONC 32.7 g/dL (32.0-36.0); MEAN CORPUSCULAR VOLUME 84.9 fL (79-99); MONOCYTES % (AUTO) 14.3 % (3.0-13.0); NEUTROPHILS % (AUTO) 55.8 % (40.0-77.0); PLATELET COUNT (AUTO) 258 K/uL (130-400); RED BLOOD CELL COUNT(AUTO) 4.57 MIL/uL (4.00-5.50); RED CELL DISTRIBUTION WIDTH 13.7 % (11.0-15.5); WHITE BLOOD COUNT (AUTO) 8.6 K/uL (4.8-10.8)
[2021-11-15 06:45] LABS: POTASSIUM 3.9 mmol/L (3.5-5.1)
[2021-11-15 08:00] VITALS: BP 147/61
[2021-11-15] MEDS: CEFTRIAXONE 1G VIAL IVP SCH (08:29)
[2021-11-15] MEDS: ATORVASTATIN 10 MG TABLET PO SCH (08:30)
[2021-11-15] MEDS: ZINC SULFATE 220 CAPSULE PO SCH (08:30)
[2021-11-15] MEDS: LOSARTAN/HYDROCHLOROTHIAZIDE 50-12.5MG TABLET PO SCH (08:30)
[2021-11-15] MEDS: ASCORBIC ACID 500 MG TAB PO SCH (08:31)
[2021-11-15] MEDS: ATENOLOL 25 MG TABLET PO SCH (08:31)
[2021-11-15] MEDS: MULTIVITAMIN TABLET PO SCH (08:32)
[2021-11-15] MEDS: THIAMINE HCL 100 MG/ML 2ML VIAL IVP SCH (08:32)
[2021-11-15] MEDS: CETIRIZINE HCL 5 MG TABLET PO SCH (08:32)
[2021-11-15] MEDS: FERROUS SULFATE 325 MG TABLET.DR PO SCH (08:32)
[2021-11-15] MEDS: PANTOPRAZOLE 40 MG TAB DR PO SCH (08:32)
[2021-11-15] MEDS: HEPARIN 5,000 UNIT VIAL SQ SCH (08:37)
[2021-11-15] MEDS: **HM** VIT D3 125MCG PO SCH (08:39)
[2021-11-15] MEDS ORDERED: DEXAMETHASONE 4 MG TAB PO SCH (09:00)
[2021-11-15] MEDS: GUAIFENESIN-DM 200/20 MG 10 ML PO PRN (11:02)
[2021-11-15 11:54] VITALS: BP 108/65
[2021-11-15] MEDS ORDERED: CEFU500T67 PO (13:40)
== END 2021-11-15 17:00 | disposition home or self-care (01) | DRG 177 ==
LOC: EDH 20:28 → EDHIP 22:27 → 3AH 11-12 01:32
PROVIDERS: ADMIT Internal Medicine; ATTEND Internal Medicine
DX: U07.1 COVID-19 (principal); J12.82 Pneumonia due to coronavirus disease 2019; I21.A1 Myocardial infarction type 2; J96.01 Acute respiratory failure with hypoxia; I48.20 Chronic atrial fibrillation, unspecified; I48.92 Unspecified atrial flutter; G93.40 Encephalopathy, unspecified; E11.65 Type 2 diabetes mellitus with hyperglycemia; E78.5 Hyperlipidemia, unspecified; K57.90 Diverticulosis of intestine, part unspecified, without perforation or abscess without bleeding; E66.9 Obesity, unspecified; D50.9 Iron deficiency anemia, unspecified; E78.00 Pure hypercholesterolemia, unspecified; Z85.51 Personal history of malignant neoplasm of bladder; G47.00 Insomnia, unspecified; Z85.828 Personal history of other malignant neoplasm of skin; Z82.49 Family history of ischemic heart disease and other diseases of the circulatory system; K21.9 Gastro-esophageal reflux disease without esophagitis; E87.6 Hypokalemia; Z83.3 Family history of diabetes mellitus; I10 Essential (primary) hypertension; Z87.11 Personal history of peptic ulcer disease; Z68.28 Body mass index [BMI] 28.0-28.9, adult
CPT/HCPCS: 36415; 36600; 70450; 71045; 73030; 80048; 80053; 81001; 82435; 82803; 82947; 82948; 83036; 83605; 83615; 83735; 84132; 84145; 84295; 84484; 85018; 85025; 85378; 85651; 86140; 87040; 87077; 87186; 87635; 87804; 93005; 93970; 94640; 94664; 94760; 99291; C9113; C9803; G0378; J0696; J1644; J1650; J1815; J3370; J3411; J3475; J3490; J7608; J8540